=== PATIENT | male | born 2000 | race Caucasian/White ===

== ENCOUNTER 2020-05-02 12:10 | Emergency (ER) | payer BC, SELFPAY ==
--- NOTE | ~2020-05-02 | XR_ITS ---
EXAMINATION: XR ankle LT min 3V DATE: 05/02/2020 12:58 INDICATION: Lateral left ankle pain post inversion injury TECHNIQUE: Anteroposterior, oblique, mortise, and lateral views of the left ankle were obtained. COMPARISON: None. FINDINGS: Alignment is normal. No fracture. Joint spaces are well maintained. No ankle joint effusion. The so ft tissues are unremarkable. IMPRESSION: 1. Negative left ankle radiographs. Reviewed, dictated and finalized at location B. ENT OFFICE REP
--- NOTE | 2020-05-02 12:30 | ED.GENADULT ---
HPI - General Adult General Chief complaint: Extremity Injury, Lower Stated complaint: Extremity Injury, Lower Time Seen by Provider: 05/02/20 12:30 Source: patient Mode of arrival: ambulatory Limitations: no limitations History of Present Illness HPI narrative: 19-year-old male patient presents to the [facility] with complaints of the left ankle and foot pain after tripping over a rug yesterday. Patient states that he elevated and put on ice yesterday but this morning when he went to get up he was having difficulty walking or putting weight on the left foot and ankle. Patient denies any numbness or tingling to the toes. Patient states he has been taking ibuprofen for the pain. Denies wrapping it. Related Data Home Medications Medication Instructions Recorded Confirmed No Home Medications 05/02/20 05/02/20 Allergies Allergy/AdvReac Type Severity Reaction Status Date / Time No Known Allergies Allergy Verified 05/02/20 12:43 Review of Systems Review of Systems: Narrative: CONSTITUTIONAL: Denies fever, chills, or sweats. EYES: Denies visual changes, redness, or discharge. ENT: Denies rhinorrhea, congestion, sore throat, or otalgia. CARDIOVASCULAR: Denies chest pain, palpitations, or edema. RESPIRATORY: Denies cough or dyspnea. GASTROINTESTINAL: Denies abdominal pain, nausea, vomiting, or diarrhea. GENITOURINARY: Denies dysuria or hematuria. SKIN: Denies rash or itching. MUSCULOSKELETAL: Denies back pain, joint pain, or myalgia. Positive left foot and ankle pain since yesterday NEUROLOGIC: Denies headache, numbness, or weakness. PSYCHIATRIC: Denies anxiety or depression. PMFSH Comments At the time of my signature I agree with nursing past medical history, surgical, social, and family history. There is no relevant family history pertinent to the presenting complaint. Exam Narrative: Exam Narrative: GENERAL: Well-appearing, well-nourished, and in no acute distress. HEAD: Normocephalic, atraumatic. EYES: PERRLA and EOMI. ENT: Nares clear, no rhinorrhea or epistaxis. Mucous membranes moist. NECK: Supple. No lymphadenopathy CHEST: Clear to auscultation. No respiratory distress. HEART: Regular rate and rhythm. No murmur heard. Normal peripheral pulses. ABDOMEN: Soft, nontender, nondistended, normal active bowel sounds. EXTREMITIES patient is able to bear weight and ambulate but has increased pain with weight applied to the left foot and ankle. The L ankle is without obvious asymmetry or deformity when compared to the R ankle. Patient can flex/extend, invert/colin. No obvious surface trauma, ecchymosis, there is some soft tissue swelling noted under the lateral malleolus area. No body tenderness to palpation over the medial or lateral malleolus. Anterior talofibular ligament, posterior talofibular ligament, calcaneofibular ligament nontender and without swelling. No tenderness or deformity of the midfoot or over the proximal fifth metatarsal. Good DP and posterior tibial pulses and sensation to light touch normal. Talar tilt test is negative for ligament laxity to valgus or vargus stress. Negative anterior draw. Peroneal nerve is intact with strong eversion and plantar flexion. SKIN: Warm, dry, no rash. NEURO: No focal deficits. Alert and oriented x3. Course Reevaluation(s) Reevaluation #1: Reevaluated patient after his x-ray resulted. Notified him that his x-ray does not show any acute fractures and that this is most likely a sprain. Discussed with patient that we will go ahead and wrap his left ankle and he should continue taking Tylenol, ibuprofen, elevate it and ice it as needed for the pain. Patient verbalized understanding denies any other questions or concerns at this time. Date: 05/02/20 Time: 13:21 Vital Signs Vital signs: Vital Signs Temperature 36.8 C 05/02/20 12:32 Pulse Rate 76 05/02/20 12:32 Respiratory Rate 20 05/02/20 12:32 Blood Pressure 130/73 05/02/20 12:32 Pulse Oximetry 100 05/02/20 12:32
[2020-05-02 12:32] VITALS: BP 130/73; PULSE 76; RESP 20; TEMP 36.8; O2SAT 100
== END 2020-05-02 13:31 | disposition home or self-care (01) ==
PROVIDERS: Emergency Provider Nurse Practitioner Family
DX: S93.402A Sprain of unspecified ligament of left ankle, initial encounter (principal); W18.09XA Striking against other object with subsequent fall, initial encounter
CPT/HCPCS: 73610; 99213; G0463